=== PATIENT | female | born 1990 | race Caucasian/White ===

== ENCOUNTER 2016-08-24 07:56 | Emergency (ER) | payer OTHER ==
[~2016-08-24] VITALS: Ht 149.9 cm; Wt 49.4 kg
[~2016-08-24 07:56] MED LIST: CYCLOBENZAPRINE5 M2 PO
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
[2016-08-24] MEDS ORDERED: LO LOESTRIN FE1 EACH PO (09:08)
[2016-08-24 09:13] LABS: ABSOLUTE BASOPHIL COUNT 0.1 /CUMM (0.0-0.2); ABSOLUTE EOSINOPHIL COUNT 0.1 /CUMM (0.0-0.7); ABSOLUTE GRANULOCYTE CT 7.8 /CUMM (1.4-6.5); ABSOLUTE MONOCYTE COUNT 1.1 /CUMM (0.10-0.60); BASOPHIL % 0.5 % (0.0-2.0); EOSINOPHIL % 1.1 % (0-5); GRANULOCYTE % 70.3 % (42.2-75.2); MEAN CORPUSCULAR HGB 28.4 PG (27.0-31.0); MEAN CORPUSCULAR HGB CONC 33.1 G/DL (33.0-37.0); MEAN CORPUSCULAR VOLUME 85.8 FL (81.0-99.0); MEAN PLATELET VOLUME 10.4 FL (7.4-10.4); PLATELET COUNT 147 /CUMM (130-400); RBC DISTRIBUTION WIDTH 13.3 % (11.5-14.5); RED BLOOD CELL CT 4.54 /CUMM (4.20-5.40); WHITE BLOOD CELL COUNT 11.1 /CUMM (4.8-10.8)
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
[2016-08-24] MEDS ORDERED: IBUPROFEN600 M1 PO (10:54)
[2016-08-24] MEDS ORDERED: CIPRO500 M1 PO (10:54)
[2016-08-24 11:01] VITALS: BP 95/55
== END 2016-08-24 11:02 ==
LOC: ERH 07:56
PROVIDERS: Emergency Medicine
DX: R10.9 Unspecified abdominal pain (principal); R31.0 Gross hematuria
CPT/HCPCS: 74176; 81001; 81025; 87086